=== PATIENT | male | born 1965 | race Caucasian/White ===

== ENCOUNTER 2016-05-04 11:43 | Outpatient (CLI) | payer BC ==
[2016-05-04 13:18] LABS: BASOPHILS % 0.3 (0.0-1.5); EOSINOPHILS % 2.8 % (0.0-6.8); LYMPHOCYTES # 3.6 # k/uL (0.6-4.0); MONOCYTES # 0.5 # k/uL (0.0-0.9); MONOCYTES % 4.8 % (0.0-11.0)
[2016-05-04 14:15] LABS: eGFR (African) > 60; eGFR (Non-African) > 60
== END 2016-05-04 11:50 ==
LOC: CARD 11:43
PROVIDERS: ATTEND Nurse Practitioner
DX: I25.10 Atherosclerotic heart disease of native coronary artery without angina pectoris (principal); I25.2 Old myocardial infarction; E11.9 Type 2 diabetes mellitus without complications
CPT/HCPCS: 36415; 80053; 80061; 83036; 84443; 85025; 99213

== ENCOUNTER 2016-10-04 08:35 | Outpatient (CLI) | payer OTHER ==
[2016-10-04 09:47] LABS: eGFR (African) > 60; eGFR (Non-African) > 60
== END 2016-10-04 08:36 ==
LOC: LAB 08:35
PROVIDERS: ATTEND Family Medicine
DX: E11.9 Type 2 diabetes mellitus without complications (principal)
CPT/HCPCS: 36415; 80053; 83036

== ENCOUNTER 2017-01-22 08:23 | Outpatient (CLI) | payer OTHER ==
[2017-01-22 09:08] LABS: eGFR (African) > 60; eGFR (Non-African) > 60
== END 2017-01-22 08:24 ==
LOC: LAB 08:23
PROVIDERS: ATTEND Internal Medicine Cardiovascular Disease
DX: I10 Essential (primary) hypertension (principal); I25.10 Atherosclerotic heart disease of native coronary artery without angina pectoris; I25.2 Old myocardial infarction
CPT/HCPCS: 36415; 80048

== ENCOUNTER 2017-12-02 08:39 | Outpatient (CLI) | payer OTHER ==
[2017-12-02 09:16] LABS: eGFR (African) > 60; eGFR (Non-African) > 60
== END 2017-12-02 08:40 ==
LOC: LAB 08:39
PROVIDERS: ATTEND Family Medicine
DX: E11.9 Type 2 diabetes mellitus without complications (principal); I42.9 Cardiomyopathy, unspecified
CPT/HCPCS: 80053; 80061; 82043; 83036

== ENCOUNTER 2018-07-31 08:16 | Outpatient (CLI) | payer OTHER ==
[2018-07-31 12:14] LABS: eGFR (Non-African) > 60
== END 2018-07-31 08:18 ==
LOC: LAB 08:16
PROVIDERS: ATTEND Nurse Practitioner
DX: I10 Essential (primary) hypertension (principal); I25.10 Atherosclerotic heart disease of native coronary artery without angina pectoris; I25.5 Ischemic cardiomyopathy; I50.22 Chronic systolic (congestive) heart failure
CPT/HCPCS: 36415; 80048

== ENCOUNTER 2018-10-27 09:10 | Outpatient (CLI) | payer OTHER ==
[2018-10-27 09:44] LABS: eGFR (Non-African) > 60
== END 2018-10-27 09:12 ==
LOC: LAB 09:10
PROVIDERS: ATTEND Nurse Practitioner
DX: I25.10 Atherosclerotic heart disease of native coronary artery without angina pectoris (principal); I25.5 Ischemic cardiomyopathy; I50.22 Chronic systolic (congestive) heart failure
CPT/HCPCS: 36415; 80048